=== PATIENT | female | born 1995 | race Caucasian/White ===

== ENCOUNTER 2017-08-16 17:57 | Emergency (ER) | payer OTHER ==
[2017-08-16 18:10] VITALS: TEMP 98.6
[2017-08-16] MEDS ORDERED: ONDANSETRON DISINTEGRATING 4 MG TAB PO ONE (18:10)
[2017-08-16] MEDS ORDERED: ONDANSETRON 4 MG/2 ML VIAL IVP ONE (18:31)
[2017-08-16] MEDS ORDERED: NS 1,000 ML IV ONE ×2 (18:31→19:45)
--- NOTE | 2017-08-16 18:52 | EDPHY ---
H & P Stated Complaint: n/v today/etoh last night Time Seen by Provider: 08/16/17 18:28 HPI/ROS: CHIEF COMPLAINT: Vomiting HISTORY OF PRESENT ILLNESS: 22-year-old female presents emergency department reporting that 18 hours ago she developed nausea and vomiting. Patient describes multiple episodes of vomiting, 3 times per hour, with inability to hold down liquids or crackers. She does report having alcohol last evening which, in the past, has often triggered vomiting. No fever, no diarrhea, no ill contacts. No blood in the vomit. Mild abdominal pain developed after vomiting and dry heaving. No history of pancreatitis, hepatitis, liver kidney problems. Patient does report mild lightheadedness but no syncope. No fever, chills, chest pain, shortness of breath, palpitations, urinary complaints, headache, lightheadedness. REVIEW OF SYSTEMS: Aside from elements discussed in the HPI, a comprehensive 10-point review of systems was reviewed and is negative. PAST MEDICAL HISTORY: Vomiting with alcohol. SOCIAL HISTORY: Smokes marijuana daily, no tobacco use. No illicit drugs. Student at [employer]. Female partner. VITAL SIGNS Reviewed by me. GENERAL: Well-developed, well-nourished, resting comfortably in no respiratory distress. HEENT: Atraumatic. Eyes: No icterus, no injection. Mouth: Slightly dry mucous membranes. No erythema or lesions. Neck: supple with no adenopathy. LUNGS: Clear to auscultation bilaterally, no wheezes, rhonchi or rales. CARDIAC: Regular rate and rhythm, no rubs, murmurs or gallops. ABDOMEN: Soft, nontender to palpation. Nondistended. BACK: No CVA tenderness. EXTREMITIES: No trauma. No edema. Range of motion is normal throughout. NEURO: Alert and oriented, grossly nonfocal. SKIN: Warm and dry, no rash. PSYCHIATRIC: Normal mentation, no agitation. - Personal History LMP (Females 10-55): 15-21 Days Ago Current Tetanus/Diphtheria Vaccine: Yes - Medical/Surgical History Hx Asthma: No Hx Chronic Respiratory Disease: No Hx Diabetes: No Hx Cardiac Disease: No Hx Renal Disease: No Hx Cirrhosis: No Hx Alcoholism: No Hx HIV/AIDS: No Hx Splenectomy or Spleen Trauma: No Other PMH: denies - Social History Smoking Status: Never smoked Constitutional: Initial Vital Signs Temperature (C) 37 C 08/16/17 18:08 Heart Rate 80 08/16/17 18:08 Respiratory Rate 16 08/16/17 18:08 Blood Pressure 97/68 L 08/16/17 18:08 O2 Sat (%) 95 08/16/17 18:08 O2 Delivery Mode Room Air Allergies/Adverse Reactions: No Known Allergies Allergy (Unverified 08/16/17 18:07) Home Medications: Medication Instructions Recorded Ondansetron Odt [Zofran Odt 4 mg 4 mg PO Q6 PRN #8 tab 08/16/17 (RX)] Ranitidine HCl 08/16/17 Medical Decision Making ED Course/Re-evaluation: IV was established. Patient received a L normal saline as well as Zofran. Improved but still slightly nauseated. Received 2 liter. Labs ok. DC with zofran. Tolerated PO in ED Differential Diagnosis: Diff dx included but not limited to gastroenteritis, gastritis, pancreatitis, GERD, ulcer, appendicitis, medication reaction, alcohol withdrawl. - Data Points Laboratory Results: Laboratory Results 08/16/17 18:30 08/16/17 18:30 Medications Given: Discontinued Medications Sodium Chloride (Ns) 1,000 mls @ 0 mls/hr IV ONCE ONE PRN Reason: Wide Open Stop: 08/16/17 18:32 Last Admin: 08/16/17 18:36 Dose: 1,000 mls Sodium Chloride (Ns) 1,000 mls @ 0 mls/hr IV ONCE ONE; Wide Open PRN Reason: Protocol Stop: 08/16/17 19:46 Last Admin: 08/16/17 20:01 Dose: 1,000 mls Ondansetron HCl (Zofran Odt) 4 mg PO EDNOW ONE Stop: 08/16/17 18:11 Last Admin: 08/16/17 18:12 Dose: 4 mg Ondansetron HCl (Zofran) 4 mg IVP EDNOW ONE Stop: 08/16/17 18:32 Last Admin: 08/16/17 18:36 Dose: 4 mg Departure - Departure Disposition: Home, Routine, Self-Care Clinical Impression: Vomiting, Possible gastritis Condition: Good Instructions: Gastritis (ED), Acute Nausea and Vomiting (ED) Additional Instructions: For your nausea/vomiting, I suggested you start with a bland diet and advance as tolerated. This means start with clear liquids such as water, Gatorade, juice, flat non- caffeinated soda. If you tolerate clear liquids, then you may add bland foods such as bananas, rice, or toast. If you do not have any worsening of your symptoms, you may begin to resume a regular diet. You have been given a prescription for Zofran. You may use this as needed for recurrent episodes of vomiting. Please avoid alcohol in the future. Referrals: [facility] Gonzales,. [Clinic] - As per Instructions Prescriptions: Ondansetron Odt [Zofran Odt 4 mg (RX)] 4 mg PO Q6 PRN #8 tab PRN Reason: Nausea
[2017-08-16 18:56] LABS: % IMMATURE GRANULYOCYTES 0.3 % (0.0-1.1); ABSOLUTE IMMATURE GRANULOCYTES 0.03 10^3/uL (0.00-0.10); ADD DIFF? NO; ADD MORPH? NO; ADD SCAN? NO; ATYPICAL LYMPHOCYTE FLAG 10 (0-99); FRAGMENT RBC FLAG 0 (0-99); HEMATOCRIT 43.7 % (38.0-47.0); HEMOGLOBIN 14.8 g/dL (12.6-16.3); LEFT SHIFT FLG 0 (0-99); LIPEMIA HEMOLYSIS FLAG 90 (0-99); MEAN CELL HEMOGLOBIN 29.7 pg (27.9-34.1); MEAN CELL HEMOGLOBIN CONCENTR. 33.9 g/dL (32.4-36.7); MEAN CELL VOLUME 87.6 fL (81.5-99.8); MEAN PLATELET VOLUME 9.8 fL (8.7-11.7); PLATELET CLUMPS FLAG 30 (0-99); PLATELET COUNT 276 10^3/uL (150-400); RED BLOOD CELL COUNT 4.99 10^6/uL (4.18-5.33); RED CELL DISTRIBUTION WIDTH 12.7 % (11.5-15.2)
[2017-08-16 19:04] LABS: ALANINE AMINOTRANSFERASE 29 IU/L (9-52); ALBUMIN 4.9 g/dL (3.5-5.0); ALKALINE PHOSPHATASE 71 IU/L (38-126); ANION GAP 16 mEq/L (8-16); ASPARTATE AMINOTRANSFERASE 21 IU/L (14-46); BILIRUBIN,TOTAL 0.8 mg/dL (0.1-1.4); BILIRUBIN-CONJUGATED 0.3 mg/dL (0.0-0.5); BILIRUBIN-UNCONJUGATED 0.5 mg/dL (0.0-1.1); CALCIUM 10.4 mg/dL (8.5-10.4); CARBON DIOXIDE 20 mEq/l (22-31); CHLORIDE 101 mEq/L (97-110); CREATININE 0.8 mg/dL (0.6-1.0); GLOMERULAR FILTRATION RATE > 60; GLUCOSE 104 mg/dL (70-100); POTASSIUM 4.1 mEq/L (3.5-5.2); SODIUM 137 mEq/L (134-144); TOTAL PROTEIN 8.2 g/dL (6.3-8.2)
[2017-08-16 20:19] VITALS: BP 107/65; PULSE 77; RESP 14; O2SAT 96
== END 2017-08-16 21:02 | disposition home or self-care (01) ==
DX: R11.10 Vomiting, unspecified (principal); E86.9 Volume depletion, unspecified
CPT/HCPCS: 96374; J2405

== ENCOUNTER 2018-07-30 13:43 | Emergency (ER) | payer OTHER ==
[2018-07-30] MEDS ORDERED: ONDANSETRON DISINTEGRATING 4 MG TAB ONE (13:51)
--- NOTE | 2018-07-30 14:30 | EDPHY ---
HPI/HX/ROS/PE/MDM Narrative: CHIEF COMPLAINT: N/V, abdominal cramping HPI: The patient is a 23 y/o female arriving with her friend complaining of persistent nausea and vomiting for the last 15 hours following a night of drinking. She reports she drank 5-6 beers last night and has had previous episodes of vomiting after drinking alcohol. She started her menstrual period this morning and now has associated lower abdominal cramping and low back pain that feel like menstrual cramps, but "the worst they've ever been." This is the expected timeframe for her to menstruate. She denies dysuria, fever, recent antibiotics, abdominal surgical history. She is normally healthy. REVIEW OF SYSTEMS: A comprehensive 10 system review of systems is otherwise negative aside from elements mentioned in the history of present illness. PMH: Tonsillectomy, no abdominal surgeries SOCIAL HISTORY: [employer] student. Friend at bedside. Prior medical records reviewed including ED visit 08/16/17 for similar symptoms. PHYSICAL EXAM: General:Patient is alert, in no acute distress. ENT:Eyes are normal to inspection. ENT inspection normal. Neck: Normal inspection. Full range of motion. Respiratory:No respiratory distress. Breath sounds normal bilaterally. Cardiovascular: Regular rate and rhythm. Strong peripheral pulses. Normal cap refill. Abdomen:The abdomen is nontender to palpation. There are no peritoneal signs. Back: Normal to inspection. No tenderness to palpation. Skin: Normal color. No rash. Warm and dry. Extremities: Normal appearance. Full range of motion. Neuro: Oriented x3. Normal motor function. Normal sensory function. Tremulous. ED Course: This is a normally healthy 23 y/o female who presents with a [id number] of nausea and vomiting after drinking heavily last night. She now has associated abdominal cramping as well and notes her menstrual period started this morning. She is tremulous and has a benign abdomen on exam. Plan for IV, labs, UA, symptom management. 1L IV NS, 4mg IV Zofran, 30mg IV Toradol ordered. Patient is requesting PO fluids. Patient is tolerating PO fluids and feels improved. She feels ready for discharge home. Script for Zofran provided. Follow up instructions and return precautions discussed. MDM: This patient presents with vomiting after binge drinking. She has no abdominal tenderness but complains of typical menstrual cramps. Her abdomen is benign, there are is no evidence of pancreatitis, she is not , and she is not in renal failure. She responded well to IV rehydration and zofran. I think she is safe for outpatient management. - Data Points Laboratory Results: Laboratory Results 07/30/18 14:25 07/30/18 14:25 07/30/18 07/30/18 07/30/18 15:59 14:25 14:25 WBC RBC Hgb Hct MCV MCH MCHC RDW Plt Count MPV Neut % (Auto) Lymph % (Auto) [place] % (Auto) Eos % (Auto) Baso % (Auto) Nucleat RBC Rel Count Absolute Neuts (auto) Absolute Lymphs (auto) Absolute Monos (auto) Absolute Eos (auto) Absolute Basos (auto) Absolute Nucleated RBC Immature Gran % Immature Gran # Sodium Potassium Chloride Carbon Dioxide Anion Gap BUN Creatinine Estimated GFR Glucose Calcium Lipase 19 IU/L L IU/L (23-300) Beta HCG, Qual NEGATIVE Urine Color YELLOW Urine Appearance CLEAR Urine pH 5.0 (5.0-7.5) Ur Specific [place] 1.021 (1.002-1.030) Urine Protein NEGATIVE (NEGATIVE) Urine Ketones 2+ H (NEGATIVE) Urine Blood 3+ H (NEGATIVE) Urine Nitrate NEGATIVE (NEGATIVE) Urine Bilirubin NEGATIVE (NEGATIVE) Urine Urobilinogen NEGATIVE EU EU (0.2-1.0) Ur Leukocyte Esterase NEGATIVE (NEGATIVE) Urine RBC 5-10 /hpf H /hpf (0-3) Urine WBC 1-3 /hpf /hpf (0-3) Ur Epithelial Cells TRACE /lpf /lpf (NONE-1+) Urine Mucus 1+ /lpf /lpf (NONE-1+) Urine Glucose NEGATIVE (NEGATIVE) 07/30/18 07/30/18 14:25 14:25 WBC 18.48 10^3/uL H 10^3/uL (3.80-9.50) RBC 4.62 10^6/uL 10^6/uL (4.18-5.33) Hgb 13.6 g/dL g/dL (12.6-16.3) Hct 41.7 % % (38.0-47.0) MCV 90.3 fL fL (81.5-99.8) MCH 29.4 pg pg (27.9-34.1) MCHC 32.6 g/dL g/dL (32.4-36.7) RDW 12.8 % % (11.5-15.2) Plt Count 253 10^3/uL 10^3/uL (150-400) MPV 9.9 fL fL (8.7-11.7) Neut % (Auto) 87.5 % H % (39.3-74.2) Lymph % (Auto) 6.8 % L % (15.0-45.0) [place] % (Auto) 4.9 % % (4.5-13.0) Eos % (Auto) 0.0 % L % (0.6-7.6) Baso % (Auto) 0.3 % % (0.3-1.7) Nucleat RBC Rel Count 0.0 % % (0.0-0.2) Absolute Neuts (auto) 16.17 10^3/uL H 10^3/uL (1.70-6.50) Absolute Lymphs (auto) 1.26 10^3/uL 10^3/uL (1.00-3.00) Absolute Monos (auto) 0.91 10^3/uL H 10^3/uL (0.30-0.80) Absolute Eos (auto) 0.00 10^3/uL L 10^3/uL (0.03-0.40) Absolute Basos (auto) 0.05 10^3/uL 10^3/uL (0.02-0.10) Absolute Nucleated RBC 0.00 10^3/uL 10^3/uL (0-0.01) Immature Gran % 0.5 % % (0.0-1.1) Immature Gran # 0.09 10^3/uL 10^3/uL (0.00-0.10) Sodium 141 mEq/L mEq/L (135-145) Potassium 4.2 mEq/L mEq/L (3.3-5.0) Chloride 108 mEq/L mEq/L (97-110) Carbon Dioxide 19 mEq/l L mEq/l (22-31) Anion Gap 14 mEq/L mEq/L (8-16) BUN 13 mg/dL mg/dL (7-23) Creatinine 0.6 mg/dL mg/dL (0.6-1.0) Estimated GFR > 60 Glucose 110 mg/dL H mg/dL (70-100) Calcium 9.5 mg/dL mg/dL (8.5-10.4) Lipase Beta HCG, Qual Urine Color Urine Appearance Urine pH Ur Specific [place] Urine Protein Urine Ketones Urine Blood Urine Nitrate Urine Bilirubin Urine Urobilinogen Ur Leukocyte Esterase Urine RBC Urine WBC Ur Epithelial Cells Urine Mucus Urine Glucose Medications Given: Discontinued Medications Sodium Chloride (Ns) 1,000 mls @ 0 mls/hr IV EDNOW ONE; Wide Open PRN Reason: Protocol Stop: 07/30/18 14:37 Last Admin: 07/30/18 14:44 Dose: 1,000 mls Sodium Chloride (Ns) 1,000 mls @ 0 mls/hr IV EDNOW ONE; Wide Open PRN Reason: Protocol Stop: 07/30/18 15:24 Last Admin: 07/30/18 15:26 Dose: 1,000 mls Ketorolac Tromethamine (Toradol) 30 mg IVP EDNOW ONE Stop: 07/30/18 14:33 Last Admin: 07/30/18 14:38 Dose: 30 mg Ondansetron HCl (Zofran) 4 mg IVP EDNOW ONE Stop: 07/30/18 14:33 Last Admin: 07/30/18 14:38 Dose: 4 mg Ondansetron HCl (Zofran) 4 mg IVP EDNOW ONE Stop: 07/30/18 15:06 Last Admin: 07/30/18 15:09 Dose: 4 mg General Time Seen by Provider: 07/30/18 14:20 Initial Vital Signs: Initial Vital Signs Temperature (C) 36.6 C 07/30/18 13:45 Heart Rate 75 07/30/18 13:45 Respiratory Rate 16 07/30/18 13:45 Blood Pressure 133/83 H 07/30/18 13:45 O2 Sat (%) 100 07/30/18 13:45 O2 Delivery Mode Room Air Allergies/Adverse Reactions: No Known Allergies Allergy (Unverified 08/16/17 18:07) Home Medications: Medication Instructions Recorded Ondansetron Odt [Zofran Odt 4 mg 4 mg PO Q6 PRN #8 tab 08/16/17 (RX)] Ranitidine HCl 08/16/17 Ondansetron Odt [Zofran Odt] 4 mg PO Q4PRN PRN #10 tab 07/30/18 Departure - Departure Disposition: Home, Routine, Self-Care Clinical Impression: Nausea and vomiting, Abdominal cramping Condition: Good Instructions: Acute Nausea and Vomiting (ED) Additional Instructions: Follow up with your primary care provider on Thursday for continued symptoms. Return to the ED for any worsening of condition. Referrals: [facility] Gonzales,. [Clinic] - As per Instructions Prescriptions: Ondansetron Odt [Zofran Odt] 4 mg PO Q4PRN PRN #10 tab PRN Reason: Nausea Report Scribed for: Kaden Seth Report Scribed by: Radha Coronado Date of Report: 07/30/18 Time of Report: 14:21 Physician Review and Approval Statement: Portions of this note were transcribed by an ED scribe. I personally performed the history, physical exam, and medical decision making; and confirm the accuracy of the information in the transcribed note.
[2018-07-30] MEDS ORDERED: KETOROLAC 30 MG/1 ML SDV IVP ONE (14:32)
[2018-07-30] MEDS ORDERED: ONDANSETRON 4 MG/2 ML VIAL IVP ONE ×2 (14:32→15:05)
[2018-07-30] MEDS ORDERED: NS 1,000 ML IV ONE ×2 (14:36→15:23)
[2018-07-30 14:44] LABS: PLATELET COUNT 253 10^3/uL (150-400)
[2018-07-30 17:48] VITALS: BP 109/56
== END 2018-07-30 17:50 | disposition home or self-care (01) ==
DX: R11.2 Nausea with vomiting, unspecified (principal); R10.84 Generalized abdominal pain; E86.9 Volume depletion, unspecified
CPT/HCPCS: 96374; J1885; J2405

== ENCOUNTER 2018-12-02 12:50 | Emergency (ER) | payer OTHER ==
[2018-12-02] MEDS ORDERED: ONDANSETRON 4 MG/2 ML VIAL ONE (13:46)
[2018-12-02] MEDS ORDERED: KETOROLAC 15 MG/1 ML SDV IVP ONE (13:49)
[2018-12-02] MEDS ORDERED: NS 1,000 ML IV ONE (13:53)
[2018-12-02] MEDS ORDERED: ONDANSETRON 4 MG/2 ML VIAL IVP ONE (13:53)
--- NOTE | 2018-12-02 14:46 | EDPHY ---
General Time Seen by Provider: 12/02/18 13:34 Narrative: CLINICAL IMPRESSION: Dysmenorrhea ASSESSMENT/PLAN: 23-year-old female presents to the emergency department with complaints of lower pelvic cramping, low back pain, nausea and vomiting in the setting of her menstrual cycle. Patient reports past history of dysmenorrhea requiring ED evaluation. No flank pain, UTI symptoms, or abnormal vaginal discharge. Patient is not sexually active with men in adamantly denies . Abdomen is soft with no focal peritoneal or unilateral findings to suggest ovarian cyst , ovarian torsion, ectopic , TOA or salpingitis. No associated fever or chills, vital signs stable, no tachycardia, signs of sepsis or hemodynamic instability. No reported anemia. Patient felt better with IV fluids, antiemetics and analgesics. I encouraged OBGYN follow-up, supportive care at home, warning signs return to emergency department sooner alignment discharge. DIFFERENTIAL DX: Abdominal pain includes but not limited to dysmenorrhea, urinary tract infection , pyelonephritis, infection, ectopic , salpingitis, TOA, ovarian torsion, ovarian cyst, endometriosis, uterine fibroids, acute appendicitis, acute diverticulitis, small-bowel obstruction, constipation ED PROCEDURES: See lab and/or imaging results below ED COURSE: 2:50 p.m.: Patient reassessed, states she is feeling much better. Would like to have a prescription for pain medication at home if needed. Would like an OBGYN referral. Vital signs stable. CHIEF COMPLAINT: Pelvic pain associated with menstruation HPI: 23-year-old female presents to the emergency department with complaints of pelvic pain, low-back pain, nausea and vomiting in the setting of menstruation. Patient reports she started her menstrual cycle this morning and had accompanying low back pain nausea and vomiting. She had symptoms like this in high school, went on control pills and symptoms abated. For the last 2 menstrual cycle she has noted return of similar symptoms. No reported fever or chills. She denies and is not sexually active with men. She denies abnormal discharge. No UTI symptoms. No upper abdominal pain, fever, chills. She tried Midol this morning but promptly vomited this. She states she has come to the emergency department a last couple months for similar symptoms. No history of anemia PAST MEDICAL HISTORY: None reported See nurse/triage notes for additional history if applicable Pertinent Past Surgical History: None reported Family History: Noncontributory Social History: Here with her girlfriend, student, otherwise healthy REVIEW OF SYSTEMS: All other systems negative Constitutional: No fever, no chills, appetite change. Cardiovascular: No chest pain, no palpitations. Respiratory: No cough, no shortness of breath. Gastrointestinal: No abdominal pain, positive for no vomiting, diarrhea. Genitourinary: No hematuria, dysuria, flank pain, positive for pelvic pain Musculoskeletal: Positive for bilateral lower back pain, joint swelling, joint pain, myalgias. Skin: No rashes, color change. Neurological: No headache, dizziness, weakness. PHYSICAL EXAM: General Appearance: Alert, oriented, appropriate, cooperative, NAD, well hydrated, non-toxic appearing, VSS, no hypoxia. Respiratory: There are no retractions, lungs are clear to auscultation. Cardiac: Regular rate and rhythm, no murmurs or gallops. Gastrointestinal: Abdomen is soft, nontender, bowel sounds normal, no masses/ hernia, no rigidity, guarding or focal peritoneal findings. Pelvic exam not performed Neurological: Alert and oriented x 3, CN 2-12 grossly intact Skin: Warm, dry, no rashes, no nodules on palpation. Psychiatric: Patient is oriented X 3, there is no agitation. MEDICAL DECISION MAKING: Patient was seen independently. Secondary supervising physician at time of evaluation was Dr. Richard . Diagnosis: Dysmenorrhea. New, requires workup Summary: See Assessment and Plan for summary of ED visit Patient Progress: Improved. - History Smoking Status: Never smoked - Objective Vital Signs: Initial Vital Signs Temperature (C) 36.3 C 12/02/18 12:54 Heart Rate 63 12/02/18 12:54 Respiratory Rate 18 12/02/18 12:54 Blood Pressure 125/78 H 12/02/18 12:54 O2 Sat (%) 97 12/02/18 12:54 O2 Delivery Mode Room Air Allergies/Adverse Reactions: No Known Allergies Allergy (Verified 12/02/18 12:54) Home Medications: Medication Instructions Recorded Ondansetron Odt [Zofran Odt 4 mg 4 mg PO Q6 PRN #8 tab 08/16/17 (RX)] Ranitidine HCl 08/16/17 Ondansetron Odt [Zofran Odt] 4 mg PO Q4PRN PRN #10 tab 07/30/18 Hydrocodone/APAP 5/325 [[place] 1 - 2 tab PO Q4H PRN #10 tab 12/02/18 5/325 (*)] Ondansetron Odt [Zofran Odt] 4 mg PO Q4PRN PRN #7 tab 12/02/18 Medications Given: Discontinued Medications Sodium Chloride (Ns) 1,000 mls @ 0 mls/hr IV EDNOW ONE; Wide Open PRN Reason: Protocol Stop: 12/02/18 13:54 Last Admin: 12/02/18 13:54 Dose: 1,000 mls Ketorolac Tromethamine (Toradol) 15 mg IVP EDNOW ONE Stop: 12/02/18 13:50 Last Admin: 12/02/18 13:56 Dose: 15 mg Ondansetron HCl (Zofran) 4 mg IVP EDNOW ONE Stop: 12/02/18 13:54 Last Admin: 12/02/18 13:54 Dose: 4 mg Departure - Departure Disposition: Home, Routine, Self-Care Clinical Impression: Dysmenorrhea Condition: Fair Instructions: Dysmenorrhea (ED) Additional Instructions: DISCHARGE INSTRUCTIONS FROM YOUR DOCTOR Thank you for visiting our emergency department today. Please keep in mind that discharge from the emergency department does not mean that there is nothing wrong - it simply means that we have not identified an emergency condition that requires further evaluation or treatment in the hospital. You should always plan to follow up with primary care for re-evaluation of your condition in the next 2-3 days. If you have been referred to a specialist, please call as soon as possible (today or tomorrow) to schedule your follow up appointment at the appropriate time. IN THE EMERGENCY DEPARTMENT TO RECEIVED IV FLUIDS, IV TORADOL, AND ZOFRAN. A PRESCRIPTION FOR NAUSEA MEDICINE AND PAIN MEDICINE WAS GIVEN TO USE IF NEEDED. DO NOT DRIVE OR DRINK ALCOHOL WHILE TAKING NARCOTIC PAIN MEDICATION. PLEASE BE AWARE, NARCOTICS CAN CAUSE CONSTIPATION, LETHARGY, AND INCREASE YOUR RISK OF FALLING. DO NOT TAKE TYLENOL AT THE SAME TIME VICODIN OR PERCOCET. PLEASE USE PAIN MEDICATION ONLY NEEDED FOR BREAKTHROUGH PAIN, PLEASE CONSIDER USING ALEVE OR IBUPROFEN. PLEASE CALL OBGYN FOR FOLLOW-UP TO DISCUSS YOUR HEAVY PAINFUL PERIODS. PLEASE RETURN TO THE EMERGENCY DEPARTMENT IMMEDIATELY FOR WORSENING PAIN, UTI SYMPTOMS, FLANK PAIN, LIGHTHEADEDNESS OR FAINTING, FEVERS GREATER THAN 100.4, OR ANY OTHER CONCERNS. People present with illnesses and injuries in different ways, and it is always possible that we have missed something. You may always return for re-evaluation if symptoms worsen or if they are not improving or if you develop new/different symptoms. Again, thank you for choosing our emergency department. We hope that you feel better. Referrals: NONE *PRIMARY CARE P,. [Primary Care Provider] - As per Instructions Lupe Reese DO [Doctor of Osteopathy] - 2-3 days, call for appt. Prescriptions: Hydrocodone/APAP 5/325 [[place] 5/325 (*)] 1 - 2 tab PO Q4H PRN #10 tab PRN Reason: Pain, Moderate Ondansetron Odt [Zofran Odt] 4 mg PO Q4PRN PRN #7 tab PRN Reason: Nausea/Vomiting, Can'T Take Po
[2018-12-02 15:18] VITALS: BP 109/60
== END 2018-12-02 15:19 | disposition home or self-care (01) ==
DX: N94.6 Dysmenorrhea, unspecified (principal); E86.9 Volume depletion, unspecified
CPT/HCPCS: 96374; J1885; J2405